=== PATIENT | male | born 1980 | race Caucasian/White ===

== ENCOUNTER 2018-01-19 14:55 | Emergency (ER) | payer BC, SELFPAY ==
[2018-01-19 14:56] VITALS: BP 156/95; PULSE 99; RESP 16; TEMP 37.2; O2SAT 99; BMI 25.4
--- NOTE | 2018-01-19 15:02 | EKG12_ITS ---
Test Reason : CP Blood Pressure : / mmHG Vent. Rate : 100 BPM Atrial Rate : 100 BPM P-R Int : 134 ms QRS Dur : 096 ms QT Int : 342 ms P-R-T Axes : 061 035 029 degrees QTc Int : 441 ms Normal sinus rhythm Normal ECG Confirmed by CORDELIA MCCLOUD MD ([id number]), acquisitions editor PRIYANKA WILKINS ([id number] on 01/24/2018 2:48:50 PM Referred By: SEDRICK AKBAR Confirmed By:CORDELIA MCCLOUD MD
--- NOTE | 2018-01-19 15:05 | NURSING ---
NO OLD EKGS
--- NOTE | 2018-01-19 15:10 | RAD_ITS ---
STUDY: X-RAY CHEST REASON FOR EXAM: Male, 37 years old. Left-sided chest pain radiating into the back. TECHNIQUE: Single AP portable view of the chest. COMPARISON: None. FINDINGS: Telemetry wires overlie the chest. There is slight elevation left hemidiaphragm. The lungs are hyperexpanded and free of infiltrate or mass. There is no pneumothorax. There is no demonstrated pleural abnormality. Normal size heart. Normal mediastinum and humble. Normal visualized pulmonary arteries. Normal visualized aortic arch and descending thoracic aorta. The thoracic spine is obscured by the mediastinum. Normal visualized ribs, clavicles, and shoulders. There is no demonstrated abnormality of the visualized soft tissue structures of the upper abdomen. RAD/Chest 1 View (Portable) IMPRESSION: No acute cardiopulmonary disease. Electronically Signed: Clif Linda DO at 15:25 EST Tel [phone], Service support ,
[2018-01-19 15:16] VITALS: O2SAT 98
--- NOTE | 2018-01-19 15:38 | ED.DCSUM_ITS ---
- ER Visit Summary Date of Service: 01/19/18 Chief Complaint: Back and chest pain History of Present Illness: The patient is a 37 M presents with left mid back pain radiating to his chest since yesterday morning. Waxing and waning however persisted. Pain with deep breaths. No recent illness or cough. Dyspnea, however no nausea or diaphoresis. No recent travel, surgeries, or immobilizations. No history of PE or DVT. States burning sensation, worse with deep breaths. Denies tobacco history. No family history of MIs at a young age. No history of hypertension or diabetes or hypercholesterolemia. History of psoriasis on topical creams as needed. Seen at urgent care given aspirin and sent here. He states he used ibuprofen earlier today with no relief. Pain is currently a 5. Physical Examination: General: Alert and oriented ?3, no acute distress HEENT: Normocephalic, atraumatic. Moist mucosa membranes Neck: supple, nontender. Cardiovascular: Regular rate and rhythm, no murmurs. There is tenderness to palpation left lower ribs lateral to the sternum. Respiratory: Normal breath sounds, symmetric, no distress Back: Tender palpation left lateral ribs #7. No crepitus. Abdomen: Soft, nontender, nondistended Extremities: Nontender, no edema, pulses intact ?4 Neuro: no focal neurological deficits. Test Results: EKG: Sinus rhythm rate of 100, no ST changes. Isolated T-wave inversion in leads III. Troponin negative. D-dimer 0.67. Chest x-ray negative. CTA chest: Mild left pleural effusion. No PE. Emergency Department Course and Treatment: Patient presents with chest pains. Cardiac workup negative. Describes pleuritic symptoms therefore d-dimer was obtained which was elevated. Subsequent CTA of the chest negative except for mild pleural effusion. Discussed likely pleurisy. Continue Motrin 600 every 6 hours as needed. Heart score is a 1. DORYS 0. Symptoms persistent for over 24 hours less likely cardiac in nature. Patient follow-up with PCP. Treatment Plan: [] Disposition: Discharge Impression: 1. Atypical chest pain 2. Pleurisy This note was generated with [employer] software. It may contain incorrect words, spelling, and punctuation that were not noted in review of the chart prior to signing ED Disposition - Plan for ED Patient: Disposition: Home or Assisted Living Chief Complaint: Chest Pain Diagnosis: Atypical chest pain, Pleurisy Instructions: ED Chest Pain Pleurisy Prescriptions: Ibuprofen 600 mg PO 4X/DAY PRN #30 tablet PRN Reason: Pain Referrals: Jesus Alberto Iglesias MD [Primary Care Provider] - 3-5 Days
[2018-01-19 15:47] LABS: Absolute Lymphocyte Count 1.79 X10^3/ul (0.83-4.51); Absolute Neutrophil Count 5.7 X10^3/uL (2.0-7.7); Basophil# 0.01 X10^3/uL; Basophil% 0.1 % (0-1); Eosinophil# 0.05 X10^3/uL; Eosinophils% 0.6 % (0-5); Hematocrit 44.8 % (40-54); Hemoglobin 15.9 g/dl (13.0-16.5); Lymphocyte # 1.79 X10^3/ul (4.0); Lymphocyte % 20.8 % (19-41); Mean Corp Hgb Conc 35.5 g/gl (32-36); Mean Corpuscular Hgb 31.7 pg (27.0-32.0); Mean Corpuscular Volume 89.4 fL (80-94); Monocyte# 1.04 X10^3/uL; Monocyte% 12.1 % (0-10); Neutrophil # 5.72 X10^3/uL (2.7-7.7); Neutrophil % 66.3 % (47-70); POSITIVE COUNT NO; POSITIVE DIFFERENTIAL NO; POSITIVE MORPHOLOGY NO; Platelet Count 230 K/mm3 (150-450); RBC Distribution Width CV 12.2 % (11.6-14.6); RBC Distribution Width SD 39.7 fl (35.1-43.9); Red Blood Count 5.01 M/mm3 (4.6-6.2); White Blood Count 8.6 K/mm3 (4.4-11.0)
[2018-01-19 16:10] LABS: Anion Gap 6 (5-15); BUN 10 mg/dL (7-18); BUN/Creat Ratio 12.5 RATIO (10-20); Calcium,Total 8.8 mg/dL (8.5-10.1); Chloride 105 mmol/L (98-107); EST Glomerular Filtration Rate 116 mL/min (>60); Est Glom Filt Rate - Afr Amer 141 mL/min (>60); Estimated Creatinine Clearance 128.88 ml/min; Glucose 88 mg/dL (74-106); Potassium 3.6 mmol/L (3.5-5.1); Sodium Level 138 mmol/L (136-145)
[2018-01-19 16:56] VITALS: BP 134/89; PULSE 105; RESP 14; O2SAT 98
[2018-01-19 17:02] LABS: D-Dimer Quantitative (DVT/PE) 0.67 FEU/ug/m (0.27-0.49)
--- NOTE | 2018-01-19 17:04 | CT_ITS ---
STUDY: CTA CHEST REASON FOR EXAM: Male, 37 years old. Elevated d-dimer. Back pain for 2 days radiating into the chest and left ribs. RADIATION DOSAGE (If Supplied By Facility): CTDIvol = ( 11.72 ) mGy, DLP = ( 445.95 ) mGycm TECHNIQUE: The examination was performed with the intravenous administration of 100CC ml of Isovue 370 contrast material. Post-processing of the angiographic images was performed, with multiplanar reformation and 3D reconstruction. Individualized dose optimization techniques were used for this CT. COMPARISON: Chest, January 19, 2018. FINDINGS: Normal enhancement of the main pulmonary artery and right and left pulmonary arteries. Normal enhancement of the bilateral peripheral pulmonary arteries. There is no demonstrated pulmonary embolism. Normal thoracic aorta and visualized great vessels. There is no demonstrated aortic dissection. Normal heart and pericardium. Normal mediastinum. Normal hilar regions. Normal visualized trachea and bronchi. The lungs are well expanded. Normal pulmonary parenchyma. There is a small left pleural effusion with minimal subsegmental atelectasis. Normal chest wall structures. Normal osseous structures. There are multiple cysts seen within the liver. Abdomen is otherwise unremarkable. CT/CTA Chest W/WO Contrast IMPRESSION: 1. No evidence of pulmonary embolus. 2. No aortic dissection or aneurysm. 3. Small left pleural effusion with minimal atelectasis. There is no acute pulmonary disease. 4. Hepatic cyst. Electronically Signed: Clif Linda DO at 18:06 EST Tel [phone], Service support ,
[2018-01-19 18:00] VITALS: BP 152/84; PULSE 115; RESP 17; O2SAT 19
[2018-01-19 19:04] VITALS: BP 133/69; PULSE 68; RESP 16; O2SAT 99
== END 2018-01-19 19:04 | disposition home or self-care (01) ==
PROVIDERS: Emergency Provider Emergency Medicine; Family Provider Family Medicine; PCP Family Medicine
DX: R07.89 Other chest pain (principal); R09.1 Pleurisy
CPT/HCPCS: 71045; 71275; 80048; 84484; 85025; 85379; 93005; 99284; Q9967; A4216